=== PATIENT | female | born 2005 | race Caucasian/White ===

== ENCOUNTER 2024-07-05 17:53 | Emergency (ER) | payer OTHER, SELFPAY ==
[2024-07-05 19:09] LABS: Specific Gravity 1.024 (1.005-1.030)
[2024-07-05 19:10] LABS: Specific Gravity 1.024 (1.005-1.030); Urine Bacteria <20 /HPF (<20); Urine Bilirubin NEGATIVE (Negative); Urine Blood Negative (Negative); Urine Clarity Extremely Turbid (Clear); Urine Color Light-Yellow (Yellow); Urine Crystals Unidentified Few /HPF (None Seen); Urine Culture Reflex Order NOT NEEDED; Urine Glucose NEGATIVE (Negative); Urine Ketones NEGATIVE (Negative); Urine Microscopic Reflex YN ORDER UMIC; Urine Mucus Slight /HPF (None Seen); Urine Nitrite NEGATIVE (Negative); Urine Protein NEGATIVE (Negative); Urine RBC <5 /HPF (None Seen); Urine Urobilinogen Normal (Normal); Urine WBC <5 /HPF (<5); Urine pH 6.5 (5.0-7.0)
--- NOTE | 2024-07-05 19:30 | RAD REPORT ---
EXAMINATION: US Transvaginal OB CLINICAL INDICATION: Female 18 years old. ABD PAIN Bed Name: [id number] TECHNIQUE: Real-time ultrasonography of the pelvis was performed transvaginally. Color and spectral D oppler evaluation of the ovaries was performed. COMPARISON: No prior exam. FINDINGS: UTERUS AND CERVIX: The uterus measures 7.9 cm in length. The uterus is normal. No masses seen. The en dometrium is normal in thickness for premenopausal state, 0.9 cm in thickness. A few small nabothian cysts. RIGHT OVARY: Normal The right ovary measures 2.1 x 1.4 x 1.5 cm. Normal color and spectral Doppler evaluation of the right ovary.. LEFT OVARY: Normal The left ovary measures 2.1 x 1.7 x 1.9 cm. Normal color and spectral Doppler evaluation of the left ovary.. FREE FLUID: No free fluid. IMPRESSION: No suspicious abnormalities. No intrauterine visualized.
--- NOTE | 2024-07-05 20:19 | EDPHYS ---
Physician Documentation [facility] Name: Keesha Johnson Age: 18 yrs Sex: Female : 2005 Arrival Date: 07/05/2024 Time: 17:53 Bed IW1 Private MD: ED Physician Iván Meza HPI: 07/05 18:09 This 18 yrs old Female presents to ER via Unassigned with complaints of Rash, Possible kb . 18:09 PT is a 18 year old female who presents to rule out ectopic . States she had a kb positive test yesterday and an US today. States the US didn't show anything. Reports pain across low abd and back. . 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 - Infectious Disease History:: Denies. - Social history:: Smoking status: Patient denies any tobacco usage or history of. ROS: 18:12 Constitutional: As per HPI kb Exam: 20:17 Constitutional: This is a well developed, well nourished patient who is awake, alert, kb and in no acute distress. Head/Face: Normocephalic, atraumatic. ENT: Moist Mucous membranes Cardiovascular: Regular rate Respiratory: Respirations even and unlabored. No increased work of breathing. Talking in full sentences Abdomen/GI: Soft, non-tender. No distention Back: No spinal tenderness. No costovertebral tenderness. Full range of motion. Skin: Warm, dry with normal turgor. Normal color. MS/ Extremity: Pulses equal, no cyanosis. Neurovascular intact. Full, normal range of motion. Neuro: Awake and alert, GCS 15, oriented to person, place, time, and situation. Vital Signs: 18:20 BP 138 / 70; Pulse 105; Resp 16; Temp 98.4; Pulse Ox 100% on R/A; Weight 83.91 kg; iw Height 5 ft. 3 in. ; 18:20 Body Mass Index 32.77 (83.91 kg, 160.02 cm) - Percentile 95.8 % MDM: 17:59 Medical Screening Exam initiated kb 20:17 Differential diagnosis: ectopic , threatened . Data reviewed: vital kb signs, nurses notes. ED course: Pt elected to leave prior to labs being drawn/diagnostic results. . 07/05 18:12 Order name: Test, Urine; Complete Time: 19:09 kb 07/05 18:12 Order name: Urinalysis w/ reflexes; Complete Time: 19:17 kb 07/05 18:12 Order name: US Transvaginal Ob; Complete Time: 19:32 kb 07/05 18:12 Order name: IV Saline Lock kb 07/05 18:12 Order name: Labs collected and sent kb 07/05 18:12 Order name: NPO kb Administered Medications: No medications were administered Disposition: 21:50 I was immediately available on-site in the Emergency Department for consultation in the ms3 care of the patient. Disposition Summary: 07/05/24 20:19 Discharge Ordered Notes: Location: Home kb Condition: Stable kb Diagnosis - State kb Followup: kb - With: Emergency Department - When: As needed - Reason: Worsening of condition Followup: kb - With: Private Physician - When: 2 - 3 days - Reason: Recheck today's complaints, Continuance of care, Re-evaluation by your physician Discharge Instructions: - Discharge Summary Sheet kb - Abdominal Pain During , [id number] kb Forms: - Medication Reconciliation Form kb - Antibiotic Education kb - Prescription Opioid Use kb - Patient Portal Instructions kb - Leadership Thank You Letter kb Signatures: Dispatcher [employer] EDTasha Perez, FRUIT ROOM HAND-C FRUIT ROOM HAND-Nilesb Gabbie Burkett, KALEIGH RN iw Iván Meza DO DO ms3 Corrections: (The following items were deleted from the chart) 18:13 18:13 ABO/RH TYPING+BB.LAB.BRZ ordered. EDMS EDMS 18:13 18:13 BASIC METABOLIC PANEL+C.LAB.BRZ ordered. EDMS EDMS 18:13 18:13 CBC+H.LAB.BRZ ordered. EDMS EDMS 18:13 18:13 Test, Urine+UC.LAB.BRZ ordered. EDMS EDMS 18:13 18:13 QUANTITATIVE HCG+C.LAB.BRZ ordered. EDMS EDMS 18:13 18:13 Urinalysis+U.LAB.BRZ ordered. EDMS EDMS
--- NOTE | 2024-07-05 20:19 | ER ---
Nurse's Notes [facility] Name: Keesha Johnson Age: 18 yrs Sex: Female : 2005 Arrival Date: 07/05/2024 Time: 17:53 Bed IW1 Private MD: Diagnosis: State Presentation: 07/05 18:12 Chief complaint: Patient states: had a positive UPT and had US done today , her US did iw not show a and was told she needs blood work drawn, she is being worked up for an autoimmune disorder. Coronavirus screen: At this time, the client does not indicate any symptoms associated with coronavirus-19. Ebola Screen: No symptoms or risks identified at this time. Initial Sepsis Screen: Does the patient meet any 2 criteria? No. Patient's initial sepsis screen is negative. Does the patient have a suspected source of infection? No. Patient's initial sepsis screen is negative. Risk Assessment: Do you want to hurt yourself or someone else? Patient reports no desire to harm self or others. 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 - Infectious Disease History:: Denies. - Social history:: Smoking status: Patient denies any tobacco usage or history of. Screenin:09 [facility] ED Fall Risk Assessment (Adult) History of falling in the last 3 months, vc1 including since admission No falls in past 3 months (0 pts) Confusion or Disorientation No (0 pts) Intoxicated or Sedated No (0 pts) Impaired Gait No (0 pts) Mobility Assist Device Used No (0 pt) Altered Elimination No (0 pt) Score/Fall Risk Level 0 - 2 = Low Risk Oriented to surroundings, Maintained a safe environment, Educated pt \T\ family on fall prevention, incl call for assistance when getting out of bed, Provided non-skid footwear, Hourly rounding (assess needs \T\ fall precautionary measures) done. Abuse screen: Denies threats or abuse. Nutritional screening: No deficits noted. Tuberculosis screening: No symptoms or risk factors identified. Vital Signs: 18:20 BP 138 / 70; Pulse 105; Resp 16; Temp 98.4; Pulse Ox 100% on R/A; Weight 83.91 kg; iw Height 5 ft. 3 in. ; 18:20 Body Mass Index 32.77 (83.91 kg, 160.02 cm) - Percentile 95.8 % iw ED Course: 17:57 Patient arrived in ED. mr 17:59 Tasha Low FNP-C is PHCP. kb 17:59 Iván Meza DO is Attending Physician. kb 18:13 Triage completed. iw 18:15 Arm band placed on. iw 18:42 US Transvaginal Ob In Process Unspecified. EDMS 21:09 No provider procedures requiring assistance completed. Patient did not have IV access vc1 during this emergency room visit. Administered Medications: No medications were administered Medication: 21:09 VIS not applicable for this client. vc1 Outcome: 20:19 Discharge ordered by . tami 21:08 Discharged to home ambulatory, left before signing to package pick up son vc1 21:08 Condition: stable 21:08 Instructed on wait time 21:10 Patient left the ED. vc1 Signatures: Dispatcher [employer] EDMS Tasha Low FNP-C FNP-Dinora Castellanos, Reg Reg Gabbie Burkett, RN KALEIGH iw Liliana Rosales RN RN vc1
[2024-07-05 22:05] VITALS: BP 138/70; TEMP 98.4; O2SAT 100
== END 2024-07-05 21:10 | disposition home or self-care (01) ==
LOC: ER 17:53
DX: Z32.01 Encounter for pregnancy test, result positive (principal)
CPT/HCPCS: 76817; 81001; 81025